=== PATIENT | female | born 1990 | race Two or more races ===

== ENCOUNTER 2023-06-18 23:31 | Emergency (ER) | payer OTHER ==
[~2023-06-18] VITALS: Ht 165.1 cm; Wt 113.0 kg
[2023-06-18] MEDS ORDERED: IPRATROPIUM BROM 0.5 MG/2.5ML INH SOL NEB ONE (23:45)
[2023-06-18] MEDS ORDERED: ALBUTEROL MEDNEB 2.5 mg/3ml NEB NEB ONE (23:45)
[2023-06-19] MEDS ORDERED: methylPREDNISolone SOD SUCC 125 MG/2 ML VL IM ONE (00:15)
[2023-06-19 00:36] LABS: Urine Bacteria FEW /hpf (None Seen); Urine Blood Negative /uL (Negative); Urine Clarity Clear (Clear); Urine Color Colorless (Yellow); Urine Protein, UAD Negative (Negative); Urine Specific Gravity 1.003 (1.001-1.035); Urine Urobilinogen Normal (Negative); Urine WBC 4 /hpf (0 - 5); Urine pH 6.5 (5.0-8.0)
[2023-06-19 00:59] VITALS: BP 129/84; PULSE 71; RESP 16; O2SAT 98
[2023-06-19] MEDS ORDERED: ALBUAER3 IN (01:51)
[2023-06-19] MEDS ORDERED: PRED20TA2 PO (01:51)
[2023-06-19] MEDS ORDERED: FAMO20TA10 PO (01:51)
[2023-06-19] MEDS ORDERED: DIPH25CA66 PO (01:51)
[2023-06-19] MEDS ORDERED: FAMOTIDINE 20 MG TAB PO ONE (02:00)
[2023-06-19] MEDS ORDERED: diphenhdrAMINE HCL 25 MG CAP PO ONE (02:00)
== END 2023-06-19 02:24 | disposition home or self-care (01) ==
LOC: ER 23:31
DX: T78.40XA Allergy, unspecified, initial encounter (principal); J45.909 Unspecified asthma, uncomplicated; X58.XXXA Exposure to other specified factors, initial encounter
CPT/HCPCS: 71045; 81001; 94640; 96372; 99284; J2930; J7644